=== PATIENT | female | born 1945 | race Caucasian/White ===

== ENCOUNTER → 2016-07-26 | Outpatient (CLI) | payer MEDICARE ==
[~2016-07-26] MED LIST: ABILIFY 15MG TA15 MG PO; ABILIFY5 MG PO; ALEVE 220MG220 MG PO; AMBIEN 10MG10 MG PO; ASPI325T6 PO; ASPIRIN E.C. 8181 MG PO; CALCIUM 600600 MG PO; CITRACAL + D CA1 TAB PO; CITRACAL PLUS1 TAB PO; DESYREL 50MG50 MG PO; EFFEXOR XR75 MG/CAP PO; FERROUS SU325 MG/TAB PO; GENTLE LAXATIVE5 MG PO; GLUCOPHAGE500 MG/TAB PO; IRON TABLETS325 MG PO; KLONOPIN 1MG1 MG PO; LAMICTAL 100MG100 MG PO; LIPITOR 40MG TA40 MG PO; NEURONTIN300 MG/CAP PO; NEXIUM 20MG20 MG PO; NEXIUM 40MG40 MG PO; NORCO 325 MG-7.1 TAB PO; RITE AID BRANDS1 TA4 PO; ROXICODONE 55 MG/TAB PO; STOOL SOFTENER100 M2 PO; TYLENOL 500MG500 MG PO; ULTRAM 50MG TAB50 MG PO; VITAMIN D5000 IU PO; VITAMIND3 5000 PO
== END ==
LOC: COL.RAD 11:15
DX: M19.011 Primary osteoarthritis, right shoulder (principal); S42.144A Nondisplaced fracture of glenoid cavity of scapula, right shoulder, initial encounter for closed fracture; X58.XXXA Exposure to other specified factors, initial encounter; M87.821 Other osteonecrosis, right humerus; M25.511 Pain in right shoulder

== ENCOUNTER 2016-08-13 15:58 | Inpatient (IN) | payer MEDICARE ==
[~2016-08-13] VITALS: Ht 157.5 cm; Wt 75.2 kg
[~2016-08-13 15:58] MED LIST changes: -ASPI325T6 PO; -CITRACAL + D CA1 TAB PO; -NORCO 325 MG-7.1 TAB PO; -ROXICODONE 55 MG/TAB PO; -TYLENOL 500MG500 MG PO; -VITAMIND3 5000 PO
[2016-10-10] MEDS ORDERED: NORCO 325 MG-7.1 TAB PO (09:56)
[2016-10-11] VITALS (12 sets, daily range): BP systolic 90–135; BP diastolic 42–80; PULSE 63–94; TEMP 97.5–98.9
[2016-10-11] MEDS ORDERED: VITAMIND3 5000 PO (12:40)
[2016-10-11] MEDS ORDERED: CITRACAL + D CA1 TAB PO (12:40)
[2016-10-12 03:06] VITALS: BP 93/53; PULSE 87; TEMP 98.1
[2016-10-12 07:30] LABS: HEMATOCRIT 27.9 % (37.0-47.0); HEMOGLOBIN 9.1 g/dl (12.5-16.0)
[2016-10-12 07:31] VITALS: BP 102/67; PULSE 90; TEMP 98.2
[2016-10-12 11:49] VITALS: BP 125/69; PULSE 94; TEMP 110.6
[2016-10-12 15:58] VITALS: BP 120/72; PULSE 89; TEMP 98.2
[2016-10-12 20:38] VITALS: BP 122/64; PULSE 79; TEMP 98.6
[2016-10-13 04:18] VITALS: BP 111/72; PULSE 102; TEMP 98.7
[2016-10-13 09:14] VITALS: BP 123/73; PULSE 78; TEMP 98.7
[2016-10-13] MEDS ORDERED: ROXICODONE 55 MG/TAB PO (10:31)
[2016-10-13] MEDS ORDERED: ASPI325T6 PO (10:32)
[2016-10-13] MEDS ORDERED: TYLENOL 500MG500 MG PO (10:40)
[2016-10-13] MEDS ORDERED: ULTRAM 50MG TAB50 MG PO (10:45)
== END 2016-10-13 12:40 | disposition home or self-care (01) | DRG 483 ==
LOC: JCC 10-11 05:18
PROVIDERS: Orthopaedic Surgery
PROC: 0RRJ0JZ Replacement of Right Shoulder Joint with Synthetic Substitute, Open Approach (ICD-10-PCS; principal; 2016-10-11 07:30)
DX: M19.011 Primary osteoarthritis, right shoulder (principal); Z96.652 Presence of left artificial knee joint
CPT/HCPCS: A4315; A9284; C1713; C1776; J0171; J0690; J1100; J1170; J2270; J2405; J2704; J2710; J7120

== ENCOUNTER → 2016-10-04 | Outpatient (CLI) | payer MEDICARE ==
[~2016-10-04] MED LIST changes: +ASPI325T6 PO; +CITRACAL + D CA1 TAB PO; +NORCO 325 MG-7.1 TAB PO; +ROXICODONE 55 MG/TAB PO; +TYLENOL 500MG500 MG PO; +VITAMIND3 5000 PO
[2016-10-04 12:02] LABS: HIV 1/2 Antibodies Non-Reactive; HIV-1p24 Antigen Non-Reactive
== END ==
LOC: COL.LAB 10:19
PROVIDERS: Orthopaedic Surgery
DX: Z01.812 Encounter for preprocedural laboratory examination (principal); M25.811 Other specified joint disorders, right shoulder

== ENCOUNTER → 2016-10-10 | Outpatient (CLI) | payer MEDICARE | LOC: MC.RAD 13:20 | DX: Z02.89 Encounter for other administrative examinations (principal) ==

== ENCOUNTER → 2016-12-27 | Outpatient (CLI) | payer MEDICARE | LOC: BHSO 08:40 | DX: F31.81 Bipolar II disorder (principal) ==

== ENCOUNTER → 2017-03-01 | Outpatient (CLI) | payer MEDICARE | LOC: BHSO 08:42 | DX: F31.81 Bipolar II disorder (principal) ==

== ENCOUNTER → 2017-04-05 | Outpatient (CLI) | payer MEDICARE | LOC: BHSO 08:56 | DX: F31.81 Bipolar II disorder (principal) ==

== ENCOUNTER 2017-05-09 14:01 | Emergency (ER) | payer MEDICARE ==
[~2017-05-09] VITALS: Ht 160 cm; Wt 81.8 kg
[2017-05-09 14:10] VITALS: TEMP 98.9
[2017-05-09 14:32] LABS: COLLECTION METHOD CLEAN CATCH
[2017-05-09] MEDS ORDERED: ABILIFY20 MG PO (14:35)
[2017-05-09] MEDS ORDERED: NEURONTIN300 MG/CAP PO (14:35)
[2017-05-09] MEDS ORDERED: KLONOPIN 1MG1 MG PO (14:35)
[2017-05-09] MEDS ORDERED: LIPITOR 40MG TA40 MG PO (14:36)
[2017-05-09] MEDS ORDERED: ULTRAM 50MG TAB50 MG PO (14:36)
[2017-05-09] MEDS ORDERED: GLUCOPHAGE500 MG/TAB PO (14:36)
[2017-05-09] MEDS ORDERED: DEPAKOTE 250MG250 MG PO (14:37)
[2017-05-09] MEDS ORDERED: ASPIRIN 81M81 MG/TA2 PO (14:38)
[2017-05-09] MEDS ORDERED: FERRO-TIME325 MG PO (14:38)
[2017-05-09] MEDS ORDERED: VITAMIN C500 MG PO (14:39)
[2017-05-09] MEDS ORDERED: OSCAL 500 TAB500 MG PO (14:39)
[2017-05-09 14:53] LABS: BASO % 0.6 % (0.0-2.0); EOS % 0.5 % (0-4.0); GRAN # 4.3 (1.4-6.5); GRAN % 69.4 % (42.2-75.2); HEMATOCRIT 41.1 % (37.0-47.0); HEMOGLOBIN 13.6 g/dl (12.5-16.0); LYMPH # 1.4 (1.2-3.4); LYMPH % 22.5 % (20.0-51.0); MEAN CELL VOLUME 97 fl (80.0-100.0); MEAN CORPUSCULAR HEMOGLOBIN 32 pg (27.0-31.0); MEAN CORPUSCULAR HGB CONC 33 g/dl (33.0-37.0); MONO # 0.4 (0.1-0.6); MONO % 6.5 % (1.7-9.3); PLATELET COUNT 145 K/mm3 (130-400); RED BLOOD COUNT 4.26 M/mm3 (4.10-5.30); WHITE BLOOD COUNT 6.2 K/mm3 (4.8-10.8)
[2017-05-09 14:59] LABS: MUCOUS Present /lpf; PH 5 (5-8); SQUAMOUS EPITHELIAL 0-2 /hpf; URINE APPEARANCE Clear; URINE BACTERIA Rare /hpf; URINE BILIRUBIN Negative (NEGATIVE); URINE BLOOD Negative (NEGATIVE); URINE COLOR Yellow; URINE GLUCOSE Negative (NEGATIVE); URINE KETONE 1+ (NEGATIVE); URINE LEUKOCYTE ESTERASE Trace (NEGATIVE); URINE PROTEIN(semi-quant) Negative (NEGATIVE); URINE UROBILINOGEN Negative (NEGATIVE)
[2017-05-09 14:59] LABS: ADJUSTED CALCIUM 9.5 mg/dL (8.4-10.2); ALANINE AMINOTRANSFERASE 21 U/L (9-52); ALBUMIN 4.4 gm/dL (3.5-5.0); ALKALINE PHOSPHATASE 82 U/L (50-136); ANION GAP 13 mmol/L (7-16); BILIRUBIN,TOTAL 0.4 mg/dL (0.0-1.0); BLOOD UREA NITROGEN 15 mg/dL (7-17); CALCIUM 9.8 mg/dL (8.4-10.2); CARBON DIOXIDE 26 mmol/L (22-30); CHLORIDE 105 mmol/L (98-107); CREATININE, serum 0.86 mg/dL (0.52-1.25); GLUCOSE 124 mg/dL (74-106); POTASSIUM 4.3 mmol/L (3.4-5.0); SODIUM 144 mmol/L (137-145); TOTAL PROTEIN 6.9 gm/dL (6.4-8.2)
[2017-05-09 15:00] LABS: ACETAMINOPHEN < 10 ug/mL (10-30); ALCOHOL(ethanol),MEDICAL < 10 mg/dL; SALICYLATE < 1.0 mg/dL
[2017-05-09 15:09] LABS: AMPHETAMINE URINE NEGATIVE; BARBITURATES URINE NEGATIVE; BENZODIAZEPINES URINE NEGATIVE; BUPRENORPHINE URINE NEGATIVE; METHADONE URINE NEGATIVE; OPIATES URINE NEGATIVE; OXYCODONE URINE NEGATIVE; PHENCYCLIDINE URINE NEGATIVE; PROPOXYPHENE URINE NEGATIVE; THC CANNABINOIDS URINE NEGATIVE; TRICYCLIC ANTIDEPRESS URINE NEGATIVE
[2017-05-09 20:36] VITALS: BP 128/72
[2017-05-10 01:21] VITALS: PULSE 80
== END 2017-05-10 01:19 ==
LOC: COL.ER 14:01
PROVIDERS: Emergency Medicine
DX: R45.851 Suicidal ideations (principal); F31.9 Bipolar disorder, unspecified; Z86.59 Personal history of other mental and behavioral disorders; Z79.84 Long term (current) use of oral hypoglycemic drugs

== ENCOUNTER → 2017-10-16 | Outpatient (CLI) | payer MEDICARE ==
[~2017-10-16] MED LIST changes: +ABILIFY20 MG PO; +ASPIRIN 81M81 MG/TA2 PO; +DEPAKOTE 250MG250 MG PO; +FERRO-TIME325 MG PO; +OSCAL 500 TAB500 MG PO; +VITAMIN C500 MG PO
== END ==
LOC: MC.RAD 14:34
DX: Z12.31 Encounter for screening mammogram for malignant neoplasm of breast (principal)

== ENCOUNTER → 2018-11-06 | Outpatient (CLI) | payer MEDICARE | LOC: MC.RAD 15:00 | DX: Z12.31 Encounter for screening mammogram for malignant neoplasm of breast (principal) ==

== ENCOUNTER 2019-01-07 11:23 | Emergency (ER) | payer MEDICARE ==
[~2019-01-07] VITALS: Ht 160 cm; Wt 90.9 kg
[2019-01-07] MEDS ORDERED: SEROQUEL300 MG PO (11:43)
[2019-01-07] MEDS ORDERED: KLONOPIN 0.5MG0.5 MG PO (11:43)
[2019-01-07] MEDS ORDERED: COGENTIN .0.5 MG/TAB PO (11:44)
[2019-01-07] MEDS ORDERED: HALDOL .5M0.5 MG/TAB PO (11:44)
[2019-01-07] MEDS ORDERED: LAMICTAL150 MG PO (11:45)
[2019-01-07] MEDS ORDERED: WELLBUTRIN SR150 M1 PO (11:46)
[2019-01-07] MEDS ORDERED: CALCIUM CARBON650 M2 PO (11:47)
[2019-01-07 12:19] LABS: ALANINE AMINOTRANSFERASE 14 U/L (9-52); ALBUMIN 4.2 gm/dL (3.5-5.0); ALKALINE PHOSPHATASE 82 U/L (50-136); ANION GAP 13 mmol/L (7-16); AST,SGOT 30 U/L (15-37); BILIRUBIN,TOTAL 0.5 mg/dL (0.0-1.0); BLOOD UREA NITROGEN 10 mg/dL (7-17); CALCIUM 10.7 mg/dL (8.4-10.2); CARBON DIOXIDE 23 mmol/L (22-30); CHLORIDE 105 mmol/L (98-107); CREATININE, serum 0.96 (0.52-1.25); GLUCOSE 115 mg/dL (74-106); LIPASE 41 U/L (23-300); POTASSIUM 3.8 mmol/L (3.4-5.0); SODIUM 141 mmol/L (137-145); TOTAL PROTEIN 6.9 gm/dL (6.4-8.2)
[2019-01-07 12:31] LABS: TROPONIN-I < 0.012 ng/mL (0.000-0.035)
[2019-01-07 12:49] LABS: BASO % 0.6 % (0.0-2.0); EOS # 0.1 (0.0-0.7); EOS % 0.8 % (0-4.0); GRAN # 3.5 (1.4-6.5); GRAN % 56.2 % (42.2-75.2); HEMATOCRIT 43.2 % (37.0-47.0); HEMOGLOBIN 14.5 g/dl (12.5-16.0); LYMPH # 1.9 (1.2-3.4); LYMPH % 30.1 % (20.0-51.0); MEAN CELL VOLUME 96 fl (80.0-100.0); MEAN CORPUSCULAR HEMOGLOBIN 32 pg (27.0-31.0); MEAN CORPUSCULAR HGB CONC 34 g/dl (33.0-37.0); MEAN PLATELET VOLUME 8.6 fl (7.4-10.4); MONO # 0.7 (0.1-0.6); MONO % 11.8 % (1.7-9.3); PLATELET COUNT 274 K/mm3 (130-400); RED BLOOD COUNT 4.52 M/mm3 (4.10-5.30); REDCELL DISTRIBUTION WIDTH-CV 13.3 % (11.5-14.5)
[2019-01-07 13:44] LABS: COLLECTION METHOD CLEAN CATCH
[2019-01-07 14:02] LABS: AMORPHOUS CRYSTAL Present /uL; MUCOUS Present /lpf; PH 9 (5-8); SQUAMOUS EPITHELIAL 0-2 /hpf; URINE APPEARANCE Cloudy; URINE BACTERIA Rare /hpf; URINE BILIRUBIN Negative (NEGATIVE); URINE BLOOD Negative (NEGATIVE); URINE COLOR Yellow; URINE GLUCOSE Negative (NEGATIVE); URINE KETONE Trace (NEGATIVE); URINE LEUKOCYTE ESTERASE Negative (NEGATIVE); URINE NITRATE Negative (NEGATIVE); URINE PROTEIN(semi-quant) Negative (NEGATIVE); URINE RBC 0-2 /hpf; URINE UROBILINOGEN Negative (NEGATIVE)
[2019-01-07] MEDS ORDERED: ZOFRAN 4MG T4 MG/TAB PO (15:36)
[2019-01-07 15:52] VITALS: BP 141/83; PULSE 85; TEMP 98
== END 2019-01-07 15:52 | disposition home or self-care (01) ==
LOC: COL.ER 11:23
PROVIDERS: Emergency Medicine
DX: R11.10 Vomiting, unspecified (principal); Z79.82 Long term (current) use of aspirin
CPT/HCPCS: J2405; J7030

== ENCOUNTER → 2019-06-10 | Outpatient (CLI) | payer MEDICARE ==
[~2019-06-10] MED LIST changes: +CALCIUM CARBON650 M2 PO; +COGENTIN .0.5 MG/TAB PO; +HALDOL .5M0.5 MG/TAB PO; +KLONOPIN 0.5MG0.5 MG PO; +LAMICTAL150 MG PO; +SEROQUEL300 MG PO; +WELLBUTRIN SR150 M1 PO; +ZOFRAN 4MG T4 MG/TAB PO
== END ==
LOC: COL.RAD 07:38
DX: K21.0 Gastro-esophageal reflux disease with esophagitis (principal)
CPT/HCPCS: A9541

== ENCOUNTER → 2019-06-11 | Outpatient (CLI) | payer MEDICARE ==
[2019-06-11 10:47] LABS: HEMATOCRIT 41.3 % (37.0-47.0); HEMOGLOBIN 13.6 g/dl (12.5-16.0); MEAN CELL VOLUME 94 fl (80.0-100.0); MEAN CORPUSCULAR HEMOGLOBIN 31 pg (27.0-31.0); MEAN CORPUSCULAR HGB CONC 33 g/dl (33.0-37.0); MEAN PLATELET VOLUME 8.7 fl (7.4-10.4); PLATELET COUNT 207 K/mm3 (130-400); RED BLOOD COUNT 4.38 M/mm3 (4.10-5.30); REDCELL DISTRIBUTION WIDTH-CV 12.7 % (11.5-14.5)
[2019-06-11 11:35] LABS: ERYTHROCYTE SEDIMENTATION RATE 11 mm/hr (0-30)
== END ==
LOC: COL.LAB 10:14
PROVIDERS: Orthopaedic Surgery
DX: M25.462 Effusion, left knee (principal)

== ENCOUNTER → 2019-09-28 | Outpatient (CLI) | payer MEDICARE | LOC: COL.RAD 09-24 13:45 | DX: M16.12 Unilateral primary osteoarthritis, left hip (principal) | CPT/HCPCS: J3301; Q9967 ==

== ENCOUNTER → 2019-12-18 | Outpatient (CLI) | payer MEDICARE | LOC: MC.RAD 15:00 | DX: Z12.31 Encounter for screening mammogram for malignant neoplasm of breast (principal) ==

== ENCOUNTER 2020-01-01 08:48 | Outpatient (RCR) | payer MEDICARE | END 2020-03-31 | disposition home or self-care (01) | LOC: MKS.ESL.PT | DX: Z01.812 Encounter for preprocedural laboratory examination (principal) ==

== ENCOUNTER → 2020-04-13 | Outpatient (RCR) | payer MEDICARE | END | disposition home or self-care (01) | LOC: MKS.ESL.PT | DX: Z47.1 Aftercare following joint replacement surgery (principal); Z96.642 Presence of left artificial hip joint ==

== ENCOUNTER 2020-05-03 10:30 | Outpatient (RCR) | payer MEDICARE | END 2020-07-17 | disposition home or self-care (01) | LOC: MKS.ESL.PT | DX: Z96.642 Presence of left artificial hip joint (principal) ==

== ENCOUNTER 2020-06-13 09:15 | Outpatient (RCR) | payer MEDICARE | END 2020-07-25 | disposition home or self-care (01) | LOC: MKS.ESL.PT | DX: M25.511 Pain in right shoulder (principal) ==

== ENCOUNTER 2021-01-10 13:05 | Emergency (ER) | payer MEDICARE ==
[~2021-01-10] VITALS: Ht 157.5 cm; Wt 76.4 kg
[~2021-01-10 13:05] MED LIST changes: -ASPIRIN 81M81 MG/TA2 PO; -KLONOPIN 0.5MG0.5 MG PO; -OSCAL 500 TAB500 MG PO; -WELLBUTRIN SR150 M1 PO; +WELLBUTRIN XL300 M1 PO
[2021-01-10 13:42] LABS: COLLECTION METHOD CLEAN CATCH
[2021-01-10 13:49] LABS: PH 5 (5-8); SQUAMOUS EPITHELIAL None Seen /hpf; URINE APPEARANCE Clear; URINE BACTERIA None Seen /hpf; URINE BILIRUBIN Negative (NEGATIVE); URINE BLOOD 1+ (NEGATIVE); URINE COLOR Yellow; URINE GLUCOSE Negative (NEGATIVE); URINE KETONE Negative (NEGATIVE); URINE LEUKOCYTE ESTERASE Negative (NEGATIVE); URINE NITRATE Negative (NEGATIVE); URINE PROTEIN(semi-quant) Negative (NEGATIVE); URINE UROBILINOGEN Negative (NEGATIVE); URINE WBC 0-2 /hpf
[2021-01-10 14:42] LABS: BASO % 0.6 % (0.0-2.0); EOS % 0.6 % (0-4.0); GRAN # 4.5 (1.4-6.5); GRAN % 68.1 % (42.2-75.2); HEMATOCRIT 40.8 % (37.0-47.0); HEMOGLOBIN 13.8 g/dl (12.5-16.0); LYMPH # 1.5 (1.2-3.4); MEAN CELL VOLUME 92 fl (80.0-100.0); MEAN CORPUSCULAR HEMOGLOBIN 31 pg (27.0-31.0); MEAN CORPUSCULAR HGB CONC 34 g/dl (33.0-37.0); MEAN PLATELET VOLUME 8.7 fl (7.4-10.4); MONO # 0.5 (0.1-0.6); MONO % 7.4 % (1.7-9.3); PLATELET COUNT 215 K/mm3 (130-400); RED BLOOD COUNT 4.44 M/mm3 (4.10-5.30); REDCELL DISTRIBUTION WIDTH-CV 12.8 % (11.5-14.5)
[2021-01-10 14:55] LABS: ALANINE AMINOTRANSFERASE 13 U/L (4-34); ALBUMIN 4.4 gm/dL (3.5-5.0); ALKALINE PHOSPHATASE 107 U/L (50-136); ANION GAP 6 mmol/L (7-16); AST,SGOT 30 U/L (15-37); BILIRUBIN,TOTAL 0.3 mg/dL (0.0-1.0); BLOOD UREA NITROGEN 11 mg/dL (7-17); CALCIUM 10.1 mg/dL (8.4-10.2); CARBON DIOXIDE 29 mmol/L (22-30); CHLORIDE 100 mmol/L (98-107); CREATININE, serum 0.96 (0.52-1.25); GLUCOSE 109 mg/dL (74-106); POTASSIUM 3.8 mmol/L (3.4-5.0); SODIUM 136 mmol/L (137-145); TOTAL PROTEIN 7.1 gm/dL (6.4-8.2)
[2021-01-10 15:15] LABS: ACETAMINOPHEN < 10 ug/mL (10-30); ALCOHOL(ethanol),MEDICAL < 10 mg/dL; SALICYLATE < 1.0 mg/dL
[2021-01-11] MEDS ORDERED: NEXIUM 40MG40 MG PO (07:53)
[2021-01-11] MEDS ORDERED: VITAMIN D31000 IU PO (07:54)
[2021-01-11] MEDS ORDERED: DESYREL 50MG50 MG PO (07:54)
[2021-01-11] MEDS ORDERED: ABILIFY5 MG PO (07:57)
[2021-01-11 10:56] VITALS: BP 126/81; PULSE 88; TEMP 97.7
== END 2021-01-11 11:15 ==
LOC: COL.ER 13:05
PROVIDERS: Nurse Practitioner Primary Care
DX: R45.851 Suicidal ideations (principal); F32.9 Major depressive disorder, single episode, unspecified; F41.9 Anxiety disorder, unspecified; Z79.899 Other long term (current) drug therapy; Z20.822 Contact with and (suspected) exposure to COVID-19

== ENCOUNTER 2021-02-16 18:43 | Emergency (ER) | payer MEDICARE ==
[~2021-02-16] VITALS: Ht 160 cm; Wt 71.4 kg
[~2021-02-16 18:43] MED LIST changes: +VITAMIN D31000 IU PO
[2021-02-16 19:57] LABS: BASO # 0.1 (0.0-0.2); BASO % 0.7 % (0.0-2.0); EOS # 0.1 (0.0-0.7); EOS % 0.8 % (0-4.0); GRAN % 68.9 % (42.2-75.2); HEMATOCRIT 41.2 % (37.0-47.0); HEMOGLOBIN 13.6 g/dl (12.5-16.0); LYMPH # 1.4 (1.2-3.4); LYMPH % 19.9 % (20.0-51.0); MEAN CELL VOLUME 95 fl (80.0-100.0); MEAN CORPUSCULAR HEMOGLOBIN 31 pg (27.0-31.0); MEAN CORPUSCULAR HGB CONC 33 g/dl (33.0-37.0); MEAN PLATELET VOLUME 8.6 fl (7.4-10.4); MONO # 0.7 (0.1-0.6); MONO % 9.4 % (1.7-9.3); PLATELET COUNT 238 K/mm3 (130-400); RED BLOOD COUNT 4.33 M/mm3 (4.10-5.30); REDCELL DISTRIBUTION WIDTH-CV 13.6 % (11.5-14.5)
[2021-02-16 20:06] LABS: ALANINE AMINOTRANSFERASE 16 U/L (4-34); ALBUMIN 4.4 gm/dL (3.5-5.0); ALKALINE PHOSPHATASE 111 U/L (50-136); ANION GAP 7 mmol/L (7-16); AST,SGOT 26 U/L (15-37); BILIRUBIN,TOTAL 0.5 mg/dL (0.0-1.0); BLOOD UREA NITROGEN 11 mg/dL (7-17); CALCIUM 9.7 mg/dL (8.4-10.2); CARBON DIOXIDE 22 mmol/L (22-30); CHLORIDE 107 mmol/L (98-107); CREATININE, serum 0.92 (0.52-1.25); GLUCOSE 104 mg/dL (74-106); POTASSIUM 3.7 mmol/L (3.4-5.0); SODIUM 136 mmol/L (137-145); TOTAL PROTEIN 6.8 gm/dL (6.4-8.2)
[2021-02-16 20:07] LABS: ACETAMINOPHEN < 10 ug/mL (10-30); ALCOHOL(ethanol),MEDICAL < 10 mg/dL; SALICYLATE < 1.0 mg/dL
[2021-02-16 20:20] LABS: COLLECTION METHOD CLEAN CATCH
[2021-02-16] MEDS ORDERED: CALCIUM 600600 MG PO ×2 (20:27→20:28)
[2021-02-16] MEDS ORDERED: NATURAL IRON65 MG (20:28)
[2021-02-16] MEDS ORDERED: NATURAL IRON65 MG PO (20:29)
[2021-02-16] MEDS ORDERED: NEURONTIN300 MG/CAP PO (20:30)
[2021-02-16] MEDS ORDERED: ASPIRIN E.C. 8181 MG PO (20:30)
[2021-02-16 20:31] LABS: MUCOUS Present /lpf; PH 7 (5-8); SQUAMOUS EPITHELIAL 0-2 /hpf; URINE APPEARANCE Clear; URINE BACTERIA None Seen /hpf; URINE BILIRUBIN Negative (NEGATIVE); URINE BLOOD 1+ (NEGATIVE); URINE COLOR Yellow; URINE GLUCOSE Negative (NEGATIVE); URINE KETONE Negative (NEGATIVE); URINE LEUKOCYTE ESTERASE 2+ (NEGATIVE); URINE NITRATE Negative (NEGATIVE); URINE PROTEIN(semi-quant) Negative (NEGATIVE); URINE RBC 0-2 /hpf; URINE UROBILINOGEN Negative (NEGATIVE)
[2021-02-16 20:31] LABS: TROPONIN-I < 0.012 ng/mL (0.000-0.035)
[2021-02-16] MEDS ORDERED: VITAMIN D31000 I1 PO (20:31)
[2021-02-16] MEDS ORDERED: DESYREL 50MG50 MG PO (20:31)
[2021-02-16] MEDS ORDERED: MOBIC 7.5MG7.5 MG PO ×2 (20:33)
[2021-02-16] MEDS ORDERED: ATIVAN 1MG T1 MG/TAB PO (20:34)
[2021-02-16] MEDS ORDERED: SEROQUEL300 MG PO (20:35)
[2021-02-16] MEDS ORDERED: LEXAPRO20 MG PO (20:36)
[2021-02-16] MEDS ORDERED: ATARAX 25MG25 MG/TAB PO (20:36)
[2021-02-16 20:41] LABS: TRICYCLIC ANTIDEPRESS URINE NEGATIVE
[2021-02-16 23:37] VITALS: BP 155/91; PULSE 84; TEMP 97.7
== END 2021-02-16 23:41 ==
LOC: COL.ER 18:43
PROVIDERS: Nurse Practitioner
DX: F32.9 Major depressive disorder, single episode, unspecified (principal); N39.0 Urinary tract infection, site not specified